=== PATIENT | female | born 1955 | race Caucasian/White ===

== ENCOUNTER → 2017-01-04 | Outpatient (CLI) | payer SELFPAY ==
[2017-01-04 14:11] LABS: HEMATOCRIT 33.9 % (37.0-47.0); HEMOGLOBIN 11.2 g/dL (12.0-16.0); MEAN CORPUSCULAR HEMOGLOBIN 36.5 PG (27-31); MEAN PLATELET VOLUME 10.8 FL (7.4-12.2); RDW COEFFICIENT OF VARIATION 17.4 % (11.5-14.5); RED BLOOD COUNT 3.07 10^6/uL (4.20-5.40); WHITE BLOOD COUNT 18.74 10^3/uL (4.8-10.8)
[2017-01-04 14:22] LABS: BILIRUBIN,TOTAL 5.2 mg/dL (0.3-1.2); BUN/CREATININE RATIO 11.53 (6-20); CALCIUM 8.6 mg/dL (8.7-10.7); CREATININE 1.3 mg/dL (0.50-1.20); POTASSIUM 3.2 meq/L (3.8-5.2); TOTAL PROTEIN 7.7 g/dL (6.1-8.0)
[2017-01-04 14:41] LABS: PLATELET MORPHOLOGY COMMENT NORMAL MORPHOLOGY (NORM)
[2017-01-04 14:56] LABS: PROTHROMBIN TIME 17.7 secs (9.7-11.4)
[2017-01-04 15:46] LABS: FREE T4 (FREE THYROXINE) 1.73 ng/dL (0.93-1.71)
[2017-01-04 16:22] LABS: BAND NEUTROPHILS % 0 % (0-10); BASOPHILS % (MANUAL) 1 % (0-1); EOSINOPHILS % (MANUAL) 0 % (0-8); LYMPHOCYTES % (MANUAL) 20 % (10-50); METAMYELOCYTES % 0 %; MONOCYTES % (MANUAL) 2 % (0-12); MYELOCYTES % 0 %; NEUTROPHILS % (MANUAL) 77 % (50-80); PROMYELOCYTES % 0 %
== END ==
LOC: LAB 13:40
DX: K70.11 Alcoholic hepatitis with ascites (principal); R16.0 Hepatomegaly, not elsewhere classified; D72.820 Lymphocytosis (symptomatic); E03.9 Hypothyroidism, unspecified
CPT/HCPCS: 36415; 80053; 84439; 84443; 85007; 85610